=== PATIENT | male | born 2000 | race Caucasian/White ===

== ENCOUNTER 2022-08-31 11:29 | Emergency (ER) | payer SELFPAY ==
[2022-08-31 11:47] VITALS: BP 112/79; PULSE 82; RESP 20; TEMP 97.9; BMI 21.2
[2022-08-31] MEDS ORDERED: ACETAMINOPHEN 1000 MG/100 ML BAG IVPB ONE (12:28)
[2022-08-31] MEDS ORDERED: ACETAMINOPHEN INJECTION 100 ML IVPB ONE (12:43)
[2022-08-31 13:23] LABS: BASO % 0.2 % (0-2.0); EOS % 0.5 % (0-4.5); HEMATOCRIT 43.8 % (35.4-49); HEMOGLOBIN 14.3 GM/dL (11.7-16.9); LYMPH % 16.5 % (8-40); MCH 27.5 pg (25.7-33.7); MCHC 32.7 g/dl (32.0-35.9); MEAN CELL VOLUME 84.1 fl (80-96); MEAN PLT VOLUME 7.5 fl (7.5-11.1); NEUT % 76.8 % (42.8-82.8); PLATELET COUNT 249 10^3/uL (134-434); RBC 5.21 M/mm3 (4.00-5.60); RDW 12.6 % (11.9-15.9); WHITE BLOOD COUNT 8.6 K/mm3 (4.0-10.0)
[2022-08-31 13:55] LABS: CALCIUM 9.1 mg/dL (8.5-10.1)
[2022-08-31 13:56] LABS: BLOOD UREA NITROGEN 10.1 mg/dL (7-18); MAGNESIUM 1.8 mg/dL (1.8-2.4)
[2022-08-31 13:58] LABS: PHOSPHOROUS 3.4 mg/dL (2.5-4.9)
[2022-08-31 13:59] LABS: CREATININE 0.9 mg/dL (0.55-1.3)
[2022-08-31 14:00] LABS: BILIRUBIN,TOTAL 0.5 mg/dL (0.2-1)
== END 2022-08-31 17:23 | disposition home or self-care (01) ==
LOC: JER 11:29
PROC: 3E0333Z Introduction of Anti-inflammatory into Peripheral Vein, Percutaneous Approach (ICD-10-PCS; principal; 2022-08-31)
DX: G40.89 Other seizures (principal)
CPT/HCPCS: 36415; 70450-TC; 80053; 82962; 83735; 84100; 85025; 93005; 93010; 99284-25

== ENCOUNTER 2022-08-31 22:25 | Emergency (ER) | payer OTHER ==
[2022-08-31 22:41] VITALS: BP 110/70; PULSE 98; RESP 18; TEMP 98.6; BMI 21.2
[2022-08-31] MEDS ORDERED: ONDANSETRON 4 MG/2 ML VIAL IVPUSH ONE (22:47)
[2022-08-31] MEDS ORDERED: METOCLOPRAMIDE HCL INJECTION 10 MG/2 ML VIAL IVPUSH ONE (22:48)
[2022-08-31] MEDS ORDERED: METOCLOPRAMIDE HCL INJECTION 10 MG/2 ML VIAL ONE (22:53)
[2022-08-31] MEDS ORDERED: ONDANSETRON 4 MG/2 ML VIAL ONE (22:53)
[2022-08-31] MEDS ORDERED: levETIRAcetam 500 MG/5 ML INJECTION VIAL IVPB ONE ×2 (23:15→23:31)
[2022-08-31 23:29] LABS: BASO % 0.4 % (0-2.0); EOS % 0.8 % (0-4.5); HEMATOCRIT 40.5 % (35.4-49); LYMPH % 40.1 % (8-40); MCH 27.1 pg (25.7-33.7); MCHC 32.1 g/dl (32.0-35.9); MEAN CELL VOLUME 84.4 fl (80-96); MEAN PLT VOLUME 7.3 fl (7.5-11.1); MONO % 9.5 % (3.8-10.2); NEUT % 49.2 % (42.8-82.8); PLATELET COUNT 230 10^3/uL (134-434); RDW 12.7 % (11.9-15.9); WHITE BLOOD COUNT 5.7 K/mm3 (4.0-10.0)
[2022-08-31 23:50] LABS: CHLORIDE 107 mmol/L (98-107); SODIUM 140 mmol/L (136-145)
[2022-08-31 23:52] LABS: ALBUMIN 3.7 g/dl (3.4-5.0); ANION GAP 3 MMOL/L (8-16); CALCIUM 8.6 mg/dL (8.5-10.1); CO2 30 mmol/L (21-32); GLUCOSE,RANDOM 93 mg/dL (74-106); MAGNESIUM 1.8 mg/dL (1.8-2.4)
[2022-08-31 23:55] LABS: CREATININE 0.9 mg/dL (0.55-1.3); SGOT/AST 26 U/L (15-37); SGPT/ALT 56 U/L (13-61)
[2022-08-31 23:57] LABS: BILIRUBIN,TOTAL 0.4 mg/dL (0.2-1); TOT PROT 7.3 g/dl (6.4-8.2)
[2022-08-31 23:58] LABS: ALK PHOS 69 U/L (45-117)
== END 2022-09-01 01:45 | disposition home or self-care (01) ==
LOC: JER 22:25
PROC: 3E033GC Introduction of Other Therapeutic Substance into Peripheral Vein, Percutaneous Approach (ICD-10-PCS; principal; 2022-08-31)
PROC: 3E033GC Introduction of Other Therapeutic Substance into Peripheral Vein, Percutaneous Approach (ICD-10-PCS; 2022-08-31)
PROC: 3E033GC Introduction of Other Therapeutic Substance into Peripheral Vein, Percutaneous Approach (ICD-10-PCS; 2022-08-31)
DX: G40.89 Other seizures (principal)
CPT/HCPCS: 36415; 80053; 82550; 82553; 83605; 83735; 84146; 85025; 99284-25